=== PATIENT | male | born 1955 | race African-American/Black ===

== ENCOUNTER 2021-07-08 16:47 | Emergency (ER) | payer OTHER ==
[~2021-07-08] VITALS: Ht 177.8 cm; Wt 68.0 kg
[~2021-07-08 16:47] MED LIST: FAMO20 PO; HYDACE5 PO; ONDA8 PO; OXYC5 PO
[2021-07-08] MEDS ORDERED: METPRE4DP PO (20:32)
[2021-07-08] MEDS ORDERED: CYCL10 PO (20:32)
== END 2021-07-08 20:49 | disposition home or self-care (01) ==
LOC: ER 16:47
DX: M54.17 Radiculopathy, lumbosacral region (principal); F17.200 Nicotine dependence, unspecified, uncomplicated; D64.9 Anemia, unspecified
CPT/HCPCS: 36415; 72100; 85651; 96374; 96375; 99284-25; A9270; J1100; J1885; J2405